=== PATIENT | female | born 1960 | race American Indian/Alaskan Native ===

== ENCOUNTER 2016-10-12 12:43 | Day surgery (SDC) | payer BC ==
--- NOTE | 2016-10-12 13:57 | Anesthesia Day of Surgery ---
Anesthesia Day of Surgery - Day of Surgery Patient Examined: Yes Patient H&P Reviewed: Yes Patient is NPO: Yes
[2016-10-12] MEDS ORDERED: PERCOCET 5/325 PO PRN (13:58)
[2016-10-12] MEDS ORDERED: DILAUDID IV PRN (13:58)
[2016-10-12] MEDS ORDERED: ZOFRAN IV PRN (13:58)
--- NOTE | 2016-10-12 13:58 | Anesthesia Consultation ---
Anesthesia Consult and Med Hx Date of service: 10/12/16 - Airway Anesthetic Teeth Evaluation: Good ROM Head & Neck: Adequate Mental/Hyoid Distance: Adequate Mallampati Class: Class II Intubation Access Assessment: Probably Good - Pulmonary Exam CTA: Yes - Cardiac Exam Cardiac Exam: RRR - Pre-Operative Health Status ASA Pre-Surgery Classification: ASA1 Proposed Anesthetic Plan: General - Pulmonary Hx Smoking: No Hx Asthma: No - Cardiovascular System Hx Hypertension: No - Central Nervous System Hx Seizures: No CVA: No - Endocrine Hx Renal Disease: No (increased urinary frequency, incontinency, chronic cystitis) Hx Liver Disease: No Hx Hypothyroidism: No
[2016-10-12] MEDS ORDERED: PEPCID PO NR (14:00)
[2016-10-12] MEDS ORDERED: VERSED IV NR (14:00)
[2016-10-12] MEDS ORDERED: NACL 0.9% 1000 ML 1,000 ML IV SCH (14:00)
[2016-10-12] MEDS ORDERED: NEO SYNEPHRINE/NS Syringe(OR USE) IV ONE (15:00)
[2016-10-12] MEDS ORDERED: DIPRIVAN 10 MG/ML IV ONE ×2 (15:08→16:24)
[2016-10-12] MEDS ORDERED: SUBLIMAZE ONE (15:08)
[2016-10-12] MEDS ORDERED: ANCEF ONE ×3 (15:39→16:23)
[2016-10-12] MEDS ORDERED: WATER FOR IRRIG STERILE IR ONE (16:00)
[2016-10-12] MEDS ORDERED: XYLOCAINE MPF 2% ONE (16:22)
[2016-10-12] MEDS ORDERED: DECADRON ONE (16:22)
[2016-10-12] MEDS ORDERED: ZOFRAN ONE (16:23)
--- NOTE | 2016-10-12 16:40 | Fluoroscopy Report ---
RETROGRADE PYELOGRAM: History: Hematuria. There is adequate filling of the ureters and intrarenal collecting systems with no filling defects or anatomic abnormalities identified.
--- NOTE | 2016-10-12 17:09 | Post Anesthesia Evaluation ---
- Post Anesthesia Evaluation Patient Participated: Yes Airway Patent: Yes Stable Respiratory Function: Yes Nausea/Vomiting: No Temp > 96.8F: Yes Pain Manageable: Yes Adequeate Hydration: Yes Anesthesia Complications: No Block Receding Appropriately: Not Applicable Patient on Ventilator: No
[2016-10-12 21:27] VITALS: BP 123/70
--- NOTE | 2016-10-17 09:17 | Discharge Summary ---
Short Stay Discharge Plan Activity: other Weight Bearing Status: Full Weight Bearing Diet: regular, low fat, low cholesterol Special Instructions: other (inc fluids) Additional Instructions: CALL DR MOSELEY FOR ANY CONCERNS OR QUESTIONS CALL OFFICE FOR RETURN APPOINTMENT TIME Follow up with: TATYANA CR MD [Primary Care Provider] - 7 Days Forms: Outpatient Surgery DC Inst.
--- NOTE | 2016-10-17 09:17 | Post Operative Note ---
Date of procedure: 10/17/16 Pre-op diagnosis: irritative voiding symptoms with pain and microscopic hematuria Post-op diagnosis: same Findings: As above Procedure: Operative note Preoperative diagnosis irritative and painful voiding symptoms Postoperative diagnosis the same Procedure cystoscopy retrogrades urethral dilatation hydrodistention Surgeon Dr. Chaney Anesthesia Gen. findings as above Procedure Patient was brought to the operating room placed on the operating table. Following the induction of anesthesia placed in the lithotomy position prepped and draped in the usual sterile fashion 's cystoscopy showed a narrowed urethra which was dilated. Bladder was well visualized with the 30 and 70 lenses. There were no bladder tumors Retrograde showed good filling good drainage with no persistent filling defects. The urethra was unremarkable postdilatation Cystoscopy accommodated 600 and then 750 mL with hydrodistention. Patient tolerated procedure well with recovery in stable condition. The dictation was delayed because of the nationwide dictation failure and an outing Anesthesia: RAYMOND Surgeon: TITI CHANEY Estimated blood loss: none Pathology: none Condition: stable Disposition: PACU
== END 2016-10-12 18:50 | disposition home or self-care (01) ==
LOC: OR 12:43
PROVIDERS: ATTEND Urology
DX: N35.9 Urethral stricture, unspecified (principal)
CPT/HCPCS: 52281; 74420; A4217; C1758; J0690; J1100; J1170; J2250; J2370; J2405; J2704; J3010; J7030; Q9967

== ENCOUNTER 2019-12-16 12:46 | Emergency (ER) | payer BC ==
[2019-12-16 14:12] VITALS: BP 138/65
--- NOTE | 2019-12-16 15:36 | Emergency Department Report ---
Chief Complaint: Extremity Injury, Lower Stated Complaint: LEFT HIP PAIN Time Seen by Provider: 12/16/19 15:02 - HPI History of Present Illness: This is a 58-year-old female who presents the ED complaining of left-sided buttock pain radiating down her left thigh for the past week. Patient states initially the pain began about a year ago and is gotten worse and worse with time. Patient denies any injury, trauma, falls. Patient states pain is a sharp pain that is intermittent. Patient denies fever, dysuria, abdominal pelvic pain difficulty with bowel movement - ROS Review of Systems: As noted in HPI - Exam Vital Signs: Vital Signs 12/16/19 14:10 Temperature 98.5 F Pulse Rate 89 Respiratory 18 Rate Blood Pressure 138/65 [Right] O2 Sat by Pulse 100 Oximetry Physical Exam: gENERAL: Alert and oriented x3, no apparent distress, Normal Gait, atraumatic. HEAD: Head is normocephalic and a-traumatic. BACK: Full range of motion, no spinal tenderness, EXTREMITIES/MUSCULOSKELETAL: No cyanosis, clubbing, rash, lesions or edema. Full ROM bilaterally. UE/LE Pulses 2+ bilaterally. LE 5+ strength bilaterally, straight leg raise positive on the left side NEUROLOGIC: The patient is cooperative with no focal neurologic deficits. SKIN: Warm and dry, No lesions, No ulceration or induration present. MSE screening note: Focused history and physical exam performed. Due to findings the following was ordered: ED Medical Decision Making - Medical Decision Making 58-year-old female presents to ED with myalgia is sciatic of the left thigh ED course: Vital signs are normal patient is in no acute distress Discussed with patient follow-up with primary care physician. Discussed the patient and take medications as prescribed. Patient has no neurological deficit. Patient is alert and oriented 3 and understands all instructions given. ED Disposition for MSE Clinical Impression: Sciatica, Sciatica of left side Disposition: DC-01 TO HOME OR SELFCARE Is pt being admited?: No Does the pt Need Aspirin: No Condition: Stable Instructions: Sciatica (ED), Lumbar Radiculopathy (ED) Additional Instructions: Make sure to follow up with the primary care physician as discussed. Take all your medications as you've been prescribed. If you have any worsening symptoms or develop new symptoms please return to ED immediately. Prescriptions: predniSONE [Deltasone] 20 mg PO QDAY #4 tab traMADoL [Ultram 50 MG tab] 50 mg PO Q6HR PRN #20 tablet PRN Reason: Pain Referrals: [facility] [Provider Group] - 3-5 Days HELENA ARNETT MD [Staff Physician] - 3-5 Days [facility] [Provider Group] - 3-5 Days Forms: Work/School Release Form(ED) Time of Disposition: 15:37
== END 2019-12-16 16:07 | disposition home or self-care (01) ==
LOC: ED 12:46
DX: M54.32 Sciatica, left side (principal); Z98.890 Other specified postprocedural states
CPT/HCPCS: 99281

== ENCOUNTER 2020-09-15 09:47 | Outpatient (CLI) | payer OTHER ==
--- NOTE | 2020-09-15 10:39 | XRay Report ---
LUMBAR SPINE 4 VIEWS INDICATION: BACK PAIN. COMPARISON: No relevant prior imaging study available. FINDINGS: There is minimal anterolisthesis of L4 on L5 which may be due to facet arthropathy. Alignment is othe rwise unremarkable. Lumbar vertebral body height is maintained. There is mild disc space narrowing at L5-S1, lumbar disc space height is otherwise reasonably maintai eveline. SI joints are within normal limits. IMPRESSION: 1. No acute findings. Signer Name: Aman Funez MD Signed: 09/15/2020 10:35 AM Workstation Name: [id number]
== END 2020-09-15 09:48 | disposition home or self-care (01) ==
LOC: XRAY 09:47
PROVIDERS: ATTEND Internal Medicine
DX: M48.07 Spinal stenosis, lumbosacral region (principal); M47.816 Spondylosis without myelopathy or radiculopathy, lumbar region
CPT/HCPCS: 72100